=== PATIENT | male | born 1965 | race Caucasian/White ===

== ENCOUNTER 2020-06-06 08:06 | Emergency (ER) | payer OTHER, SELFPAY ==
[~2020-06-06] VITALS: Ht 180.3 cm; Wt 108.0 kg
[2020-06-06 08:10] VITALS: Ht 180.3 cm; Wt 108.0 kg
[2020-06-06 09:52] VITALS: BP 138/82
[2020-06-09] MEDS ORDERED: METFORMIN HCL1000 M2 PO (21:28)
[2020-06-09] MEDS ORDERED: GLIPIZIDE2.5 M1 PO (21:30)
[2020-06-09] MEDS ORDERED: ZESTRIL5 MG PO (21:31)
== END 2020-06-06 09:52 | disposition home or self-care (01) ==
LOC: ED 08:06
DX: U07.1 COVID-19 (principal); I10 Essential (primary) hypertension; E11.9 Type 2 diabetes mellitus without complications; Z98.890 Other specified postprocedural states
CPT/HCPCS: U0003